=== PATIENT | male | born 1965 | race Caucasian/White ===

== ENCOUNTER 2018-09-18 10:18 | Emergency (ER) | END 2018-09-18 12:38 | disposition home or self-care (01) ==

== ENCOUNTER 2018-12-17 15:28 | Emergency (ER) | payer BC ==
[~2018-12-17] VITALS: Ht 177.8 cm; Wt 86.7 kg
[~2018-12-17 15:28] MED LIST: SIME125C69 PO
[2018-12-17 15:32] VITALS: Ht 177.8 cm; Wt 86.7 kg
[2018-12-17] MEDS ORDERED: MECLIZINE 12.5 MG TAB PO ONE (17:30)
--- NOTE | 2018-12-17 17:37 | ERD ---
ER Documentation Chief Complaint Chief Complaint Dizzy headache HPI This is a 53-year-old male with a history of vertigo who is complaining of 3 days of her flareup. He says he gets vertigo off and on from time to time he has been fighting it for 3 days now. He says when he turns his head the room starts to spin severely. But no nausea vomiting. He does have a dull diffuse headache. No focal neurological complaints of numbness weakness speech change visual change. He says if he remains still the vertigo goes away. So the vertigo is worse when he tries to go to bed this is worse when he lays flat and when he rolls over in bed and makes him spin. ROS All systems reviewed and are negative except as per history of present illness. Medications Home Meds Active Scripts Simethicone (Simethicone) 125 Mg Capsule, 125 MG PO TID PRN for DISTENSION/GAS/BLOATING, #15 CAP Prov:ARMANDO COMBS MD 09/18/18 Allergies Allergies: Coded Allergies: No Known Allergy (Unverified , 09/18/18) PMhx/Soc Medical and Surgical Hx: pt denies Medical Hx, pt denies Surgical Hx Hx Alcohol Use: No Hx Substance Use: No Hx Tobacco Use: No Smoking Status: Never smoker FmHx Family History: No coronary disease Physical Exam Vitals Vital Signs Date Temp Pulse Resp B/P (MAP) Pulse Ox O2 O2 Flow FiO2 Time Delivery Rate 12/17/18 98.3 98 18 113/85 100 15:32 (94) Physical Exam Const: Well-developed, well-nourished Head: Atraumatic, normocephalic Eyes: Normal Conjunctiva, PERRLA, EOMI, normal sclera, no nystagmus ENT: Normal External Ears, Nose and Mouth, moist mucus membranes. Neck: Full range of motion. No meningismus, no lymphadenopathy. Resp: Clear to auscultation bilaterally, no wheezing, rhonchi, rales Cardio: Regular rate and rhythm, no murmurs, S1 S2 present Abd: Soft, non tender x 4, non distended. Normal bowel sounds, no guarding or rebound, no pulsitile abdominal masses or bruits Skin: No petechiae or rashes, no ecchymosis , no maculopapular rash Back: No midline or flank tenderness Ext: No cyanosis, or edema, FROM x 4, normal inspection, neurovascularly intact x 4 of Hallpike Neur: Awake and alert, STR 5/5 x 4, sensation intact x 4, no focal findings, cerebellum intact Psych: Normal Mood and Affect Results 24 hrs Current Medications Medications Dose Sig/Travis Start Time Status Last (Trade) Ordered Route PRN Stop Time Admin Dose Reason Admin Meclizine 25 mg ONCE ONCE 12/17/18 DC 12/17/18 HCl PO 17:30 12/17/18 17:45 (Antivert) 17:31 Procedures/MDM PROCEDURE: CT Brain without contrast. CLINICAL INDICATION: Headache TECHNIQUE: A CT of the brain was performed on a multidetector CT scanner utilizing axial imaging from the skull base through the vertex without IV contrast. Multiplanar reformatted images were made. Images were reviewed on a PACS workstation. The CTDIvol is 39 mGy and the DLP is 634 mGycm. DICOM images are available. One or more of the following dose reduction techniques were utilized: 1.) Automated exposure control 2.) Adjustment of the mA +/- kV according to patient's size 3.) Use of iterative reconstruction technique. COMPARISON: None FINDINGS: There is no intracranial hemorrhage, mass effect, or midline shift. No extra- axial fluid collection is seen. The ventricles and sulci are normal in size and configuration. The density of the brain is normal, and the doshi white matter differentiation appears well-preserved. The visualized paranasal sinuses and osseous structures are grossly unremarkable. IMPRESSION: 1. No evidence of acute intracranial pathology. 2. The brain is normal in appearance. .Willian Lucero MD, MD Date Time Electronically viewed and signed by .Willian Lucero MD, MD on 12/17/2018 17:56 .A/ CC: JOSEPH BROWN DO [id number] This patient's CT scan is negative he had received some Antivert. Patient is having recurrence of his vertigo. He is feeling better. Will discharge home with Antivert. Patient feels much better at this time, and vital signs are normal, symptoms have improved. I did give strict instructions to return to the ED if symptoms continue or worsen, patient will otherwise follow-up with primary care physician. Patient understood instructions and agreed to plan. Disclaimer: Inadvertent spelling and grammatical errors are likely due to EHR/dictation software use and do not reflect on the overall quality of patient care. Also, please note that the electronic time recorded on this note does not necessarily reflect the actual time of the patient encounter. Departure Diagnosis: Primary Impression: Vertigo Condition: Stable JOSEPH BROWN DO Dec 17, 2018 17:37
[2018-12-17] MEDS ORDERED: MECL12.574 PO (18:33)
[2018-12-17 18:43] VITALS: BP 130/81; PULSE 82; RESP 19
== END 2018-12-17 18:46 | disposition home or self-care (01) ==
LOC: E/R 15:28
DX: R42 Dizziness and giddiness (principal); R40.2142 Coma scale, eyes open, spontaneous, at arrival to emergency department
CPT/HCPCS: 70450; Z7502; Z7610

== ENCOUNTER 2019-08-08 15:14 | Emergency (ER) | payer BC ==
[~2019-08-08] VITALS: Ht 160 cm; Wt 79.0 kg
[~2019-08-08 15:14] MED LIST changes: +ACET500C5 PO; +FAMO-96 PO; +MECL12.574 PO
[2019-08-08 15:19] VITALS: BP 148/74; PULSE 75; RESP 18; Ht 160 cm; Wt 79.0 kg
== END 2019-08-08 17:43 | disposition home or self-care (01) ==
LOC: E/R 15:14
DX: R10.13 Epigastric pain (principal)
CPT/HCPCS: 76705; 80053; 81003; 83690; 85025; Z7502